=== PATIENT | male | born 2005 | race African-American/Black ===

== ENCOUNTER 2024-02-27 10:45 | Emergency (ER) | payer OTHER ==
[~2024-02-27] VITALS: Ht 175.3 cm; Wt 87.0 kg
[2024-02-27 10:51] VITALS: O2SAT 99
[2024-02-27] MEDS ORDERED: LEVA15HF6 IH (11:40)
[2024-02-27 11:47] VITALS: BP 122/57; PULSE 56; RESP 19; TEMP 98.9
== END 2024-02-27 11:48 | disposition home or self-care (01) ==
LOC: ER 10:45
DX: B34.9 Viral infection, unspecified (principal)
CPT/HCPCS: 71045; 99283; Z7610